=== PATIENT | female | born 1995 | race Two or more races ===

== ENCOUNTER 2018-12-17 09:15 | Emergency (ER) | payer SELFPAY ==
[~2018-12-17] VITALS: Ht 170.2 cm; Wt 71.7 kg
[2018-12-17 09:59] VITALS: BP 135/90
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
[2018-12-17] MEDS ORDERED: DICL50TA4 PO (11:49)
[2018-12-17] MEDS ORDERED: CYCL10TA2 PO (11:49)
== END 2018-12-17 11:54 | disposition home or self-care (01) ==
LOC: ER 09:15
DX: S13.8XXA Sprain of joints and ligaments of other parts of neck, initial encounter (principal); S00.83XA Contusion of other part of head, initial encounter; M54.5 Low back pain; V43.52XA Car driver injured in collision with other type car in traffic accident, initial encounter; Y93.89 Activity, other specified; Y92.410 Unspecified street and highway as the place of occurrence of the external cause; Y99.8 Other external cause status
CPT/HCPCS: 72100; 72125; 81025; 99283